=== PATIENT | male | born 1960 | race Caucasian/White ===

== ENCOUNTER 2024-11-30 13:34 | Emergency (ER) | payer MEDICARE, SELFPAY ==
[2024-11-30 13:46] VITALS: BP 197/124; PULSE 95; RESP 18; TEMP 36.6; O2SAT 98; BMI 27.9
[2024-11-30] MEDS: Lidocaine HCl 2 % MPF 5 ML VIAL SUBCUT (14:52)
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
[2024-11-30 15:27] VITALS: BP 197/124; PULSE 95; RESP 18; TEMP 36.6; O2SAT 98
[2024-11-30] MEDS: Diphth,Pertus(ACell),Tet Adult 0.5 ML SYRINGE IM (15:27)
== END 2024-11-30 15:28 | disposition home or self-care (01) ==
PROVIDERS: Emergency Provider Emergency Medicine
DX: S01.81XA Laceration without foreign body of other part of head, initial encounter (principal); W26.9XXA Contact with unspecified sharp object(s), initial encounter; Y93.89 Activity, other specified; Y92.410 Unspecified street and highway as the place of occurrence of the external cause; Y99.9 Unspecified external cause status; Z23 Encounter for immunization
CPT/HCPCS: 12011; 90471; 90715; 99282; 99284; J2003

== ENCOUNTER 2024-12-06 09:12 | Outpatient (AMB) | payer MEDICARE, SELFPAY ==
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
[2024-12-06 09:15] VITALS: BP 182/110; PULSE 108; TEMP 36.7; O2SAT 98; BMI 27.4
== END 2024-12-06 09:55 | disposition home or self-care (01) ==
PROVIDERS: Visit Provider Nurse Practitioner Family
DX: Z48.02 Encounter for removal of sutures (principal); I10 Essential (primary) hypertension

== ENCOUNTER → 2024-12-06 09:12 | Outpatient (BNVA) | payer MEDICARE, SELFPAY | PROVIDERS: Visit Provider Nurse Practitioner Family | DX: I10 Essential (primary) hypertension (principal); Z48.02 Encounter for removal of sutures; Z87.2 Personal history of diseases of the skin and subcutaneous tissue | CPT/HCPCS: 99212 ==